=== PATIENT | male | born 2000 | race American Indian/Alaskan Native ===

== ENCOUNTER 2023-06-18 17:20 | Emergency (ER) | payer BC ==
[2023-06-18] MEDS ORDERED: Lidocaine 1% (PF) 30 ML VIAL ONE (17:31)
[2023-06-18] MEDS ORDERED: CEFAZOLIN 2 GM VIAL ONE (17:42)
== END 2023-06-19 00:07 | disposition short-term general hospital (02) ==
LOC: ERS 17:20
DX: S62.613A Displaced fracture of proximal phalanx of left middle finger, initial encounter for closed fracture (principal); W05.1XXA Fall from non-moving nonmotorized scooter, initial encounter
CPT/HCPCS: 26607; 96365; J2001